=== PATIENT | male | born 1955 | race Caucasian/White ===

== ENCOUNTER 2020-08-25 10:40 | Emergency (ER) | payer OTHER ==
[~2020-08-25] VITALS: Ht 180.3 cm; Wt 97.8 kg
[2020-08-25] MEDS ORDERED: ONDANSETRON 2MG/ML, 2ML IVPush ONE (11:30)
[2020-08-25] MEDS ORDERED: SODIUM CHLORIDE 0.9% 1,000ML IVBOLUS ONE (11:30)
[2020-08-25] MEDS ORDERED: SODIUM CHLORIDE FLUSH 10ML SYR IVF ONE (11:30)
[2020-08-25] MEDS ORDERED: HYDROmorphone 2 MG/ML, 1ML IVPush PRN (11:30)
[2020-08-25] MEDS ORDERED: HYDROmorphone 1 MG/ML, 1ML INJ ONE (11:35)
[2020-08-25] MEDS ORDERED: ONDANSETRON 2MG/ML, 2ML ONE (11:35)
[2020-08-25 12:16] LABS: BASOPHILS % (AUTO) 1 % (0-1); EOSINOPHILS % (AUTO) 2 % (1-7); LYMPHOCYTES % (AUTO) 21 % (22-44); MEAN CORPUSCULAR HEMOGLOBIN 29.9 pg (27.5-34.5); MEAN CORPUSCULAR HGB CONC 34.6 g/dL (33.2-36.2); MEAN PLATELET VOLUME 10.1 fL (7.4-10.4); MONOCYTES % (AUTO) 9 % (2-9); NEUTROPHILS % (AUTO) 68 % (42-75); PLATELET COUNT 110 x10^3/uL (130-400); RED BLOOD COUNT 5.56 x10^6/uL (4.38-5.82); RED CELL DISTRIBUTION WIDTH 13.6 % (9.4-14.8)
[2020-08-25 12:20] LABS: MD NO
[2020-08-25 12:21] LABS: ALANINE AMINOTRANSFERASE 33 U/L (12-78); ALBUMIN 3.9 g/dL (3.4-5.0); ANION GAP 8 mmol/L (5-15); CALCIUM 8.9 mg/dL (8.5-10.1); CHLORIDE 103 mmol/L (98-107)
[2020-08-25 12:24] LABS: ALKALINE PHOSPHATASE 80 U/L (45-117); BILIRUBIN,TOTAL 1.1 mg/dL (0.2-1.0); CREATININE 1.28 mg/dL (0.7-1.3); TOTAL PROTEIN 7.6 g/dL (6.4-8.2)
[2020-08-25] MEDS ORDERED: OMNIPAQUE 350 MG/ML, 100ML BOTTLE ONE (12:46)
--- NOTE | 2020-08-25 13:16 | NUR ---
PT AND RESTING AWAITING RESULTS OF TESTS
[2020-08-25 13:29] LABS: MICROSCOPIC NOT IND
[2020-08-25 14:08] VITALS: BP 141/86
== END 2020-08-25 14:11 | disposition home or self-care (01) ==
LOC: ED 11:22
DX: K52.9 Noninfective gastroenteritis and colitis, unspecified (principal); R10.32 Left lower quadrant pain; R19.7 Diarrhea, unspecified
CPT/HCPCS: 36415; 71045; 74177; 80053; 81003; 83605; 85025; 87040; 96361; 96374; 99285; J2405; J7030; Q9967